=== PATIENT | female | born 1990 | race Caucasian/White ===

== ENCOUNTER 2019-01-02 19:04 | Emergency (ER) | payer SELFPAY | END 2019-01-03 00:26 | disposition left against medical advice (07) | LOC: FTE 19:04 | DX: Z53.21 Procedure and treatment not carried out due to patient leaving prior to being seen by health care provider (principal) ==

== ENCOUNTER 2019-01-03 05:25 | Emergency (ER) | payer OTHER | END 2019-01-03 07:58 | disposition home or self-care (01) | LOC: FTE 05:25 | DX: S20.219A Contusion of unspecified front wall of thorax, initial encounter (principal); S30.1XXA Contusion of abdominal wall, initial encounter; V49.40XA Driver injured in collision with unspecified motor vehicles in traffic accident, initial encounter | CPT/HCPCS: 71045; 93005; 99283-25 ==